=== PATIENT | male | born 2000 | race Caucasian/White ===

== ENCOUNTER 2025-02-14 10:56 | Emergency (ER) | payer OTHER ==
[~2025-02-14] VITALS: Ht 172.7 cm; Wt 135.2 kg
[2025-02-14 11:15] VITALS: TEMP 98.4
[2025-02-14] MEDS: IBUPROFEN 400 MG TABLET PO ONE (11:35)
[2025-02-14] MEDS: CLINDAMYCIN HCL 150 MG CAPSULE PO ONE (11:35)
[2025-02-14] MEDS ORDERED: IBUPROFEN 400 MG TABLET ONE (11:37)
[2025-02-14] MEDS ORDERED: CLINDAMYCIN HCL 150 MG CAPSULE ONE (11:37)
[2025-02-14] MEDS ORDERED: CLIN300C12 PO (11:55)
[2025-02-14 12:28] VITALS: BP 145/98; O2SAT 97
== END 2025-02-14 12:15 | disposition home or self-care (01) ==
LOC: ER 11:15
DX: L03.112 Cellulitis of left axilla (principal); I10 Essential (primary) hypertension; J45.909 Unspecified asthma, uncomplicated